=== PATIENT | female | born 1950 | race Caucasian/White ===

== ENCOUNTER 2019-06-23 10:06 | Observation (INO) | payer MEDICARE ==
--- NOTE | 2019-06-16 11:39 | HP ---
AMENDED REPORT NOW INCLUDES DESIGNATED COSIGNER HISTORY AND PHYSICAL: DATE OF ADMISSION/SURGERY: 06/23/19 DATE OF OFFICE VISIT: 06/15/19 SURGEON: Narda Pinedo MD.* (DICTATED BY FRANCISCO CURRY) PROCEDURE: Right total knee arthroplasty. CHIEF COMPLAINT: Right knee pain. HISTORY OF PRESENT ILLNESS: Ms. Walsh is a 69-year-old female with end- stage osteoarthritis of the right knee. She has failed conservative treatment and elected to proceed with a right total knee arthroplasty. PAST MEDICAL HISTORY: High cholesterol, diverticulitis, GERD, and basal cell carcinoma. PAST SURGICAL HISTORY: Hysterectomy, cystocele and rectocele repair, left rotator cuff repair, tubal ligation, and right knee arthroscopy. CURRENT MEDICATIONS: 1. Atorvastatin calcium 40 mg a day. 2. Bentyl 40 mg as needed. 3. Omeprazole 40 mg a day. 4. Norepinephrine 25 mg a day. 5. AZO Bladder Control. 6. Tylenol as needed. ALLERGIES: To MORPHINE causing hives and some mild shortness of breath. FAMILY HISTORY: Cancer. SOCIAL HISTORY: She is a 69-year-old female. She lives alone, but will be staying with her daughter after this surgery. She denies the use of tobacco or drugs and uses occasional alcohol. REVIEW OF SYSTEMS: A complete 14-point review of systems was reviewed with the patient, it was positive for GERD and some severe nausea, vomiting, and confusion after anesthesia. She denies history of DVT, PE, hepatitis, HIV or anesthesia problems. PHYSICAL EXAMINATION GENERAL: She is well developed, well nourished, in no acute distress. VITAL SIGNS: She stands 53-1/2 inches tall, weighs 174 pounds. Blood pressure is 148/88, heart rate is 60. HEENT: Normocephalic, atraumatic. NECK: Supple. No palpable lymph nodes. CARDIO: Regular rate and rhythm. Strong S1, S2. PULMONARY: Lungs are clear to auscultation bilaterally. ABDOMEN: Soft, nontender, nondistended. NEUROLOGIC: She is alert and oriented x3. MUSCULOSKELETAL: Right lower extremity: The skin is intact. There are no open wounds or abrasions. There is a moderate effusion of the right knee joint. She has some tenderness along the medial and lateral joint line of the right knee. Range of motion is 10 to 120 degrees of flexion with patellofemoral crepitus. She has a 2+ dorsalis pedis pulse. She is able to dorsiflex and plantarflex and has intact sensation. ASSESSMENT AND PLAN: Ms. Walsh is a 69-year-old female with end-stage osteoarthritis of the right knee. She has failed conservative treatment and elected to proceed with a right total knee arthroplasty. The surgery is scheduled for 06/23/[address] Pinedo discussed the risks and benefits of the surgery at today's visit and all of her questions were answered. She will follow up with Dr. Pinedo 2 weeks after the surgery. FRANCISCO CURRY [id number]/CPS #: [id number] MTDD
[~2019-06-23 10:06] MED LIST: Buffered Lidocaine 1% SYRIN* 1 ML/SYRINGE INTRADERM ONE; HYDROmorphone INJ1* 1 MG/ML SYRINGE IV PRN; Lactated Ringers 1000 ML Bag* 1,000 ML IV SCH; Naloxone* 0.4 MG/ML 1 ML VIAL IV PRN; Ondansetron INJ* 2 MG/ML VIAL IV PRN; Tranexamic Acid 1,000 MG in NS 0.9% 50 ML* (outpatient use) IV SCH; ceFAZolin 2 GM PREMIX in ORs 2 GM/50 ML BAG ONE
--- OUTSIDE RECORDS SUMMARY | 2019-06-23 10:10 | XMS REPORT | Continuity of Care Document ---
:1950 External Reference #:[id number] Author Name Narda Pinedo M.D. (transmitted by agent of provider Mellisa Gallego) Address [address] [place] [address] [place] [address] Care Team Providers Name Role Phone Patient's Choice Care Team Information Teaching Specialists Unavailable Problems Active Problems Provider Date Localized, primary osteoarthritis Narda Pinedo M.D. Onset: 05/25/2019 Social History Type Date Description Comments Sex Unknown ETOH Use Occasionally consumes alcohol Tobacco Use Start: Unknown Patient has never smoked Smoking Status Reviewed: 06/15/19 Patient has never smoked Exercise Type/Frequency Exercises regularly Allergies, Adverse Reactions, Alerts Active Allergies Reaction Severity Comments Date Morphine Sulfate Hives 05/25/2019 Medications Active Medications SIG Qnty Indications Ordering Provider Date Atorvastatin Calcium 1 by mouth every Unknown 40mg day Tablets Omeprazole 2 by mouth every Unknown 40mg Capsules DR day Norepinephrine 25 mg Qday Unknown Bitartrate Azo Bladder 1 tab Qday Unknown Control/Go-Less Capsules Tylenol 8 Hour 1 tab by mouth Unknown 650mg Tablets twice daily ER Bentyl 40 MG 1 tab by mouth Unknown once daily as needed Immunizations Description No Information Available Vital Signs Date Vital Result Comment 06/15/2019 8:59am Height 63.5 inches 5'3.50" Weight 174.50 lb Heart Rate 60 /min BP Systolic Sitting 148 mmHg BP Diastolic Sitting 88 mmHg Respiratory Rate 16 /min Pain Level 0 O2 % BldC Oximetry 98 % BMI (Body Mass Index) 30.4 kg/m2 05/25/2019 9:30am Height 63.5 inches 5'3.50" Weight 174.50 lb Heart Rate 63 /min BP Systolic 146 mmHg BP Diastolic 76 mmHg Respiratory Rate 16 /min Pain Level 10 BMI (Body Mass Index) 30.4 kg/m2 Results Description No Information Available Procedures Description No Information Available Medical Devices Description No Information Available Encounters Type Date Location Provider Dx Diagnosis Office Visit 05/25/2019 [facility] Narda Pinedo, M25.561 Pain in right 9:15a at [place] knee M25.461 Effusion, right knee M17.11 Unilateral primary osteoarthritis, right knee M25.562 Pain in left knee M25.462 Effusion, left knee M17.12 Unilateral primary osteoarthritis, left knee Assessments Date Code Description Provider 06/15/2019 M25.561 Pain in right knee Narda Pinedo M.D. 06/15/2019 M25.461 Effusion, right knee Narda Pinedo M.D. 06/15/2019 M17.11 Unilateral primary osteoarthritis, right knee Narda Pinedo M.D. 05/25/2019 M25.561 Pain in right knee Narda Pinedo M.D. 05/25/2019 M25.461 Effusion, right knee Narda Pinedo M.D. 05/25/2019 M17.11 Unilateral primary osteoarthritis, right knee Narda Pinedo M.D. 05/25/2019 M25.562 Pain in left knee Narda Pinedo M.D. 05/25/2019 M25.462 Effusion, left knee Narda Pinedo M.D. 05/25/2019 M17.12 Unilateral primary osteoarthritis, left knee Narda Pinedo M.D. Plan of Treatment Future Appointment(s):07/06/2019 9:15 am - Narda Pinedo M.D. at [facility]06/23/2019 2:30 pm - Narda Pinedo M.D. at [facility]06/15/2019 - Narda Pinedo M.D.M25.561 Pain in right kneeFollow up:Follow up: 2 weeks after [id number] Effusion, right kneeM17.11 Unilateral primary osteoarthritis, right knee Functional Status Description No Information Available Mental Status Description No Information Available Referrals Description No Information Available
--- OUTSIDE RECORDS SUMMARY | 2019-06-23 10:10 | XMS REPORT | Continuity of Care Document ---
:1950 External Reference #:[id number] Author Name Narda Pinedo M.D. (transmitted by agent of provider Monique Sheppard) Address [address] [place] [address] [place] [address] Care Team Providers Name Role Phone Patient's Choice Care Team Information Women'S Activities Adviser Unavailable Problems Active Problems Provider Date Localized, primary osteoarthritis Narda Pinedo M.D. Onset: 05/25/2019 Social History Type Date Description Comments Sex Unknown ETOH Use Occasionally consumes alcohol Tobacco Use Start: Unknown Patient has never smoked Smoking Status Reviewed: 05/25/19 Patient has never smoked Exercise Type/Frequency Exercises [...] Qday Unknown Control/Go-Less Capsules Tylenol 8 Hour take every 6 Unknown 650mg hours as needed Tablets ER for pain, headache or fever Immunizations Description No Information Available Vital Signs Date Vital Result Comment 05/25/2019 9:30am Height 63.5 inches 5'3.50" Weight 174.50 lb Heart Rate 63 /min BP Systolic 146 mmHg BP Diastolic 76 mmHg Respiratory Rate 16 /min Pain Level 10 BMI (Body Mass Index) 30.4 kg/m2 Results Description No Information Available Procedures Description No Information Available Medical Devices Description No Information Available Encounters Description No Information Available Assessments Date Code Description Provider 05/25/2019 M25.561 Pain in right knee Narda Pinedo M.D. 05/25/2019 M25.461 Effusion, right knee Narda Pinedo M.D. 05/25/2019 M17.11 Unilateral primary osteoarthritis, right knee Narda Pinedo M.D. 05/25/2019 M25.562 Pain in left knee Narda Pinedo M.D. 05/25/2019 M25.462 Effusion, left knee Narda Pinedo M.D. 05/25/2019 M17.12 Unilateral primary osteoarthritis, left knee Narda Pinedo M.D. Plan of Treatment 05/25/2019 - Narda Pinedo M.D.M25.561 Pain in right kneeNew Xrays:Knees Bilateral, Ordered: 05/25/19Follow up:Follow up: 7-10 days before [id number] Effusion, right kneeM17.11 Unilateral primary osteoarthritis, right kneeM25.562 Pain in left kneeNew Xrays:Knees Bilateral, Ordered: M25.462 Effusion, left kneeM17.12 Unilateral primary osteoarthritis, left knee Functional Status Description No Information Available Mental Status Description No Information Available Referrals Description No Information Available
[2019-06-23] MEDS ORDERED: ROPIVACAINE 5 MG/ML 30 ML BTL (0.5%) ONE ×2 (12:22→12:42)
[2019-06-23] MEDS ORDERED: Midazolam* 1 MG/ML 5 ML VIAL (5 MG) ONE (12:22)
[2019-06-23] MEDS ORDERED: Propofol* 10 MG/ML 20 ML BTL ONE (12:47)
[2019-06-23] MEDS ORDERED: Ondansetron INJ* 2 MG/ML VIAL ONE (14:44)
[2019-06-23] MEDS ORDERED: Dexamethasone IV* 4 MG/ML 1 ML (4 MG) ONE (14:44)
[2019-06-23] MEDS ORDERED: Ondansetron INJ* 2 MG/ML VIAL IV PRN (15:25)
[2019-06-23] MEDS ORDERED: Polyethylene Glycol 3350* 17 GM PACKET PO PRN (15:25)
[2019-06-23] MEDS ORDERED: Ondansetron ODT TAB* 4 MG PO PRN (15:25)
[2019-06-23] MEDS ORDERED: diPHENhydraMINE IV* 50 MG/ML 1 ml VIAL (BENADRYL) IV PRN (15:25)
[2019-06-23] MEDS ORDERED: diPHENhydraMINE PO* 25 MG PO PRN (15:25)
[2019-06-23] MEDS ORDERED: Cyclobenzaprine TAB* 10 MG PO PRN (15:25)
[2019-06-23] MEDS ORDERED: traMADol TAB* 50 MG PO PRN (15:25)
[2019-06-23] MEDS ORDERED: Magnesium Hydroxide LIQ* 30 ML UDC PO PRN (15:25)
[2019-06-23] MEDS ORDERED: HYDROmorphone INJ* 0.5 MG/0.5 ML SYRINGE IV SLOW PU PRN (15:28)
[2019-06-23] MEDS ORDERED: Dicyclomine CAP* 10 MG PO PRN (15:28)
[2019-06-23] MEDS: Lactated Ringers 1000 ML Bag* 1,000 ML IV SCH (17:05)
--- NOTE | 2019-06-23 20:17 | OP ---
Operative Report - Blank - Operative Report Date of Operation: 06/23/19 Note: MISAEL YANG 1950 Date of Surgery: 06/23/19 Narda Pinedo MD Timber Killer: Genna SINGH did help throughout the procedure with preparation of the knee, wound retraction, manipulation of the knee, and wound closure. Anesthesiologist: Dr Min Anesthesia Type: Spinal Preoperative Diagnosis: Right severe degenerative osteoarthritis of the knee Postoperative Diagnosis: As above Procedure Performed: Right Total Knee Arthroplasty Tourniquet time: 45 minutes Complications: None Specimen: Bone and cartilage from the Right knee joint sent to pathology. Hardware Used: Cemented [employer]ce [employer]hew total knee hardware was used - For the femur a size 5 right narrow legion posterior stabilized femoral component, for the tibia a size 3 right caio II tibial baseplate, for the insert a size 9mm 3-4 posterior stabilized articular polyethylene insert, and for the patella a size 29 3-peg all poly patella. Brief History/Indication: MISAEL YANG was known in clinic and had a history of severe right knee pain and swelling. She failed conservative treatment with anti-inflammatories, pain pills, intra-articular injections and physical therapy. She elected to undergo right total knee arthroplasty due to continued pain and decreased quality of life. Radiographs showed severe end stage osteoarthritis of the knee with bone on bone contact. Informed consent was obtained from the patient. She understood the risks of surgery included but were not limited to: bleeding, infection, damage to nearby structures, intraoperative fracture, nerve palsy, failure of the hardware, early loosening, knee stiffness or loss of motion, anesthesia complications, stroke, heart attack , blood clot and . She wished to proceed. Intra-Operative Findings: Intraoperatively the patient was noted to have severe loss of cartilage in all 3 compartments of the knee. Description of the Procedure: MISAEL YANG was identified in the preanesthesia unit. Her right knee was marked as the correct operative side. Informed consent was signed and placed in the chart. The patient was taken to the operating room and placed under anesthesia without complication. A li catheter was placed. A tourniquet was placed on the right thigh. The right lower extremity was prepped and draped in the usual sterile fashion. Preoperative time-out was made to correctly identify the patient, side and site. Appropriate intraoperative antibiotics were given within one hour of incision. Tourniquet was inflated. A midline incision was made and carried sharply down to the extensor mechanism. A new 10 blade was used to make a standard medial parapatellar arthrotomy. The patella was subluxed laterally. Electrocautery was used to dissect soft tissue off the superomedial tibia to the midsagittal plane. The knee was flexed up. The anterior horn of the lateral meniscus and the ACL were sharply incised. A drill was used to enter the distal femur. The intramedullary distal femoral cutting guide was pinned on the distal femur. The oscillating saw was used to make the distal femoral cut. The external rotation guide was pinned on the distal femur and the distal femur was sized to a size 5. The size 5 multi-cutting jig was pinned on the distal femur. The oscillating saw was used to make the appropriate 4 chamfer cuts. Next the PCL was completely released. The extramedullary tibial cutting guide was pinned on the proximal tibia and the oscillating saw was used to make the proximal tibial cut perpendicular to the mechanical axis of the tibia. The bone was carefully removed. The knee was brought out into full extension. The spacer block was placed and had excellent fit with the knee in full extension. The medial and lateral ligaments were well balanced. The flexion and extension gaps were well balanced. The knee was flexed up. Lamina hand box coverer was placed both medially and laterally. Any remaining meniscus was removed with electrocautery. Curved osteotome was used to remove any posterior osteophytes. The tibial tray and drop dee were placed and confirmed a satisfactory tibial cut. The size 5 right narrow femoral trial was impacted onto the distal femur. This trial had excellent fit and stability. The box for the posterior stabilized implant was prepared using a box cut osteotome and a reamer. Next a tibial tray trial and 9 mm insert trial was placed. The knee was taken through a range of motion and had full extension to 130 degrees of flexion. Patellofemoral tracking was satisfactory. The patella was inverted and sized to a size 29. Three peg holes were drilled through the size 29 drill guide. The trial patella was placed and the knee was taken through a range of motion. There was satisfactory patellofemoral tracking. All trials were removed. The tibia was subluxed anteriorly and sized to a size 3. The proximal tibial was prepared with a size 3 keel punch. All bony cut surfaces were irrigated with sterile saline and dried. Final implants were cemented into place starting with the tibia, followed by the femur, and last the patella. A 9 mm insert trial was placed and the knee was brought into full extension. Tourniquet was turned down and the knee was copiously irrigated with sterile saline. Electrocautery was used to obtain meticulous hemostasis. Once the cement had fully cured, the insert trial was removed. Any excess cement was removed from around the hardware and capsule. Final insert chosen was a 9 mm posterior stabilized Caio II articular insert size 3-4. Stability of the insert was checked and noted to be stable. The extensor mechanism was closed using number 1 vicryls. The rest of the incision was closed in a layered fashion using 0 and 2-0 vicryls. The skin was closed using 3-0 nylon suture. Sterile xeroform, 4x4s and webril were used to cover the incision. Manuel wrap and cold pack were used to cover the dressings. The patients anesthesia was reversed without difficulty. She was taken to the PACU in stable condition. Intended weight-bearing will be as tolerated.
[2019-06-23] MEDS: oxyCODONE/Acetamin 5/325 MG* TAB PO PRN (20:18)
[2019-06-23] MEDS: Atorvastatin* 40 MG TAB PO SCH (20:19)
[2019-06-23] MEDS: Nortriptyline CAP* 25 MG PO SCH (20:19)
[2019-06-23] MEDS: Magnesium Hydroxide LIQ* 30 ML UDC PO SCH (20:20)
[2019-06-23] MEDS: Docusate CAP* 100 MG PO SCH (20:20)
[2019-06-23] MEDS: ceFAZolin 1 GM ADVAN(*) 1 GM in NS 0.9% 50 ML* 50 ML IVPB SCH (20:21)
[2019-06-23] MEDS: Acetaminophen TAB* 325 MG PO SCH (21:27)
[2019-06-23] MEDS: oxyCODONE TAB* 5 MG TAB PO PRN (22:15)
[2019-06-24] MEDS: oxyCODONE/Acetamin 5/325 MG* TAB PO PRN ×6 (00:15→23:40)
[2019-06-24] MEDS: oxyCODONE TAB* 5 MG TAB PO PRN ×2 (02:17→06:15)
[2019-06-24] MEDS: Lactated Ringers 1000 ML Bag* 1,000 ML IV SCH (02:41)
[2019-06-24] MEDS: ceFAZolin 1 GM ADVAN(*) 1 GM in NS 0.9% 50 ML* 50 ML IVPB SCH ×2 (05:16→12:34)
[2019-06-24] MEDS: Acetaminophen TAB* 325 MG PO SCH ×3 (05:18→22:16)
[2019-06-24 05:59] LABS: Hematocrit 39 % (35-47); Hemoglobin 12.9 g/dL (12.0-16.0); Mean Platelet Volume 9.2 fL (7.4-10.4); Platelet Count 284 10^3/uL (150-450)
[2019-06-24 06:16] LABS: BUN/Creatinine Ratio 21.3 (8-20); Calcium 8.6 mg/dL (8.6-10.3); EGFR African American 117.3 (>60); Potassium 4.6 mmol/L (3.5-5.0)
[2019-06-24] MEDS: Magnesium Hydroxide LIQ* 30 ML UDC PO SCH ×2 (08:22→21:21)
[2019-06-24] MEDS: Vitamin THERAPEUTIC TAB PO SCH (08:22)
[2019-06-24] MEDS: Apixaban* 2.5 MG TAB PO SCH ×2 (08:22→21:20)
[2019-06-24] MEDS: Docusate CAP* 100 MG PO SCH ×2 (08:23→21:20)
[2019-06-24] MEDS ORDERED: Scopolamine 1.5 mg* PATCH TRANSDERM SCH (10:00)
--- NOTE | 2019-06-24 10:43 | PN ---
Progress Note - Progress Note Date of Service: 06/24/19 SOAP: Subjective: []Pt seen at bedside. She feels well without CP, SOB, dizziness, abd pain. Does have nausea. R knee pain well controlled. Objective: []Gen: NAD, appears well RLE: Right knee dressing CDI, thigh soft, DF/PF intact, DP2+, sensation intact to light touch distally Calves supple and nontender without erythema, edema or palpable cords Assessment: []POD [address] Pinedo Plan: []WBAT PT/OT eliquis 2.5 mg po bid x 30 days post op Scop patch ordered for nausea Home dose omeprazole 40 mg qd ordered Home today or tomorrow, will change dressing today if DC Vital Signs Temp 98.4 F 06/24/19 07:49 Pulse 60 06/24/19 07:49 Resp 16 06/24/19 08:23 BP 148/47 06/24/19 07:49 Pulse Ox 100 06/24/19 07:49 Intake & Output 06/23/19 06/24/19 06/24/19 18:59 06:59 18:59 Intake Total 1850 2336 180 Output Total 525 1500 250 Balance 1325 836 -70 Weight 173 lb 11.588 oz Intake: IV Fluids 1850 932 LR 1850 932 IVPB 54 ABX - CEFAZOLIN 54 Oral 1350 180 Output: Urine 750 250 Emmanuel 325 750 Estimated Blood Loss 200 Laboratory Last Values Hgb 12.9 g/dL (12.0-16.0) 06/24/19 05:07 Hct 39 % (35-47) 06/24/19 05:07 Plt Count 284 10^3/uL (150-450) 06/24/19 05:07 MPV 9.2 fL (7.4-10.4) 06/24/19 05:07 Sodium 136 mmol/L (135-145) 06/24/19 05:07 Potassium 4.6 mmol/L (3.5-5.0) 06/24/19 05:07 Chloride 103 mmol/L (101-111) 06/24/19 05:07 Carbon Dioxide 27 mmol/L (22-32) 06/24/19 05:07 Anion Gap 6 mmol/L (2-11) 06/24/19 05:07 BUN 13 mg/dL (6-24) 06/24/19 05:07 Creatinine 0.61 mg/dL (0.51-0.95) 06/24/19 05:07 Est GFR ( Amer) 117.3 (>60) 06/24/19 05:07 Est GFR (Non-Af Amer) 97.0 (>60) 06/24/19 05:07 BUN/Creatinine Ratio 21.3 (8-20) H 06/24/19 05:07 Glucose 132 mg/dL (70-100) H 06/24/19 05:07 Calcium 8.6 mg/dL (8.6-10.3) 06/24/19 05:07
[2019-06-24] MEDS: Pantoprazole TAB * 40 MG TAB PO SCH (10:58)
[2019-06-24] MEDS: PROCHLORPERAZINE INJ 5 MG/ML 2 ML VIAL IV PRN (14:00)
--- NOTE | 2019-06-24 14:25 | DS ---
Orthopedic Discharge Summary - Discharge Summary Date of Admission:06/23/19 Date of Discharge: 06/24/19 Date of Surgery: 06/23/19 Attending Orthopedic Provider: Dr Pinedo Pre-operative Diagnosis: right knee osteoarthrits Operative Procedure: right total knee replacement Disposition of Patient: home with lifetime nursing and home pt Condition of Patient: stable History: MISAEL YANG is a 69 year old F with years of increasingly severe right knee pain. Patient has failed conservative management and has elected to undergo a right total knee replacement Hospital Course: MISAEL was admitted to [facility] on 06/23/19. Patient underwent a right total knee replacement without complication followed by a brief recovery in PACU and transfer to the Short Stay Surgical Unit in stable condition. physical therapy also participated in this patients care. Post -op day 1: patient was alert and in no acute distress. Dressing was clean, dry and intact. Operative extremity dorsiflexion and plantarflexion intact, sensation intact to light touch distally, DP2+. Post-op day two: dressing was changed, incision was clean, dry and intact. Patient was deemed to be medically and orthopedically stable for discharge. Physical therapy goals were met. Home Medications Medication Instructions Recorded Confirmed Type Acetaminophen TAB* [Tylenol TAB*] 650 mg PO BID 06/22/19 06/23/19 History Atorvastatin* [Lipitor 40 MG*] 40 mg PO BEDTIME 06/22/19 06/23/19 History Dicyclomine CAP* [Bentyl CAP*] 40 mg PO AC PRN 06/22/19 06/23/19 History Nortriptyline CAP* [Pamelor CAP*] 25 mg PO BEDTIME 06/22/19 06/23/19 History Omeprazole 40 mg PO QAM 06/22/19 06/23/19 History Polyethylene Glycol 3350* 17 gm PO QAM 06/22/19 06/23/19 History [Miralax*] Calcium Carbonate [Tums] 200 mg PO DAILY PRN 06/23/19 06/23/19 History Acetaminophen TAB* [Tylenol TAB*] 975 mg PO Q8HR tab 06/24/19 Rx Docusate CAP* [Colace Cap*] 100 mg PO BID PRN #60 cap 06/24/19 Rx Enoxaparin(*) [Lovenox(*)] 40 mg SUBCUT Q24HR #30 syringe 06/24/19 Rx Scopolamine 1.5 mg* PATCH* 1 patch TRANSDERM Q72H patch 06/24/19 Rx [Transderm-Scop 1.5 mg Patch*] oxyCODONE/Acetamin 5/325 MG* 2 tab PO Q4H PRN #60 tab MDD 10 06/24/19 Rx [Percocet 5/325 TAB*] Discharge Instructions following Orthopedic Surgery: Activity: * Weight Bearing as tolerated * Continue physical therapy and occupational therapy exercises as shown * Home PT Wound care: * OK to shower on post-op day 3, no bathing, swimming, or submerging wound. * Use gentle soap, pat dry. Cover with gauze, MICHELLE wrap or tape. * Visiting home nurse to do wound checks. Call Orthopedic office for: * Increased drainage * Redness * Increased pain * Fever Go to ER with shortness of breath or chest pain. Diet: * Regular diet * Increase fluids and fiber to prevent constipation. * Continue to use stool softeners, call office if no bowel motion within 48 hours. Medications See Home Medication List in your packet for medications that you should take after discharge. compazine 5 mg tabs 1 tab every 6 hours as needed for nausea Remove scopolamine patch from behind your ear 06/27/19 DVT Prophylaxis: Lovenox 40 mg subcutaneous injection once daily for 30 days postop. Increases bleeding tendency Pain Control: Percocet Dosin/325 mg 1-2 tabs by mouth every 4-6 hours as needed for pain. Maximum of 10 tabs per day. HOld for sedation, wean off as soon as pain allows Please note that Percocet contains Tylenol (acetaminophen). Maximum daily dose of Tylenol is 4000 mg from all sources. Antibiotics are required prior to any dental work. FOLLOW UP: Follow up with [Khris] Within 10-14 days, call for appointment Please call our office with any questions or concerns ([phone]) RX [facility] pain meds, docusate and compazine Winter Carey lovenox
[2019-06-24] MEDS: Atorvastatin* 40 MG TAB PO SCH (21:20)
[2019-06-24] MEDS: Nortriptyline CAP* 25 MG PO SCH (21:20)
[2019-06-25] MEDS: oxyCODONE TAB* 5 MG TAB PO PRN ×2 (02:02→11:56)
[2019-06-25 05:45] LABS: Hematocrit 38 % (35-47); Hemoglobin 12.9 g/dL (12.0-16.0); Mean Platelet Volume 9.2 fL (7.4-10.4); Platelet Count 281 10^3/uL (150-450)
[2019-06-25] MEDS: Acetaminophen TAB* 325 MG PO SCH (06:16)
[2019-06-25] MEDS: PROCHLORPERAZINE INJ 5 MG/ML 2 ML VIAL IV PRN (07:24)
[2019-06-25] MEDS: Apixaban* 2.5 MG TAB PO SCH (08:13)
[2019-06-25] MEDS: Docusate CAP* 100 MG PO SCH (08:13)
[2019-06-25] MEDS: Pantoprazole TAB * 40 MG TAB PO SCH (08:13)
[2019-06-25] MEDS: oxyCODONE/Acetamin 5/325 MG* TAB PO PRN (08:13)
[2019-06-25] MEDS: Vitamin THERAPEUTIC TAB PO SCH (08:13)
[2019-06-25] MEDS: Magnesium Hydroxide LIQ* 30 ML UDC PO SCH (08:15)
[2019-06-25 11:19] LABS: Urine Appearance Cloudy; Urine Bilirubin Negative (Negative); Urine Blood 1+ (Negative); Urine Color Yellow; Urine Glucose Negative (Negative); Urine Ketones Negative (Negative); Urine Nitrite Negative (Negative); Urine Protein Negative (Negative); Urine Specific Gravity 1.011 (1.010-1.030); Urine Urobilinogen Negative (Negative)
[2019-06-25 11:20] LABS: Urine Bacteria Absent (Absent); Urine Red Blood Cell 1+(3-5/hpf) (Absent); Urine Squamous Epithelial Cell Present (Absent); Urine White Blood Cell 2+(11-20/hpf) (Absent)
[2019-06-25 11:24] VITALS: BP 139/55
--- NOTE | 2019-06-25 13:11 | PN ---
Progress Note - Progress Note Date of Service: 06/25/19 Note: Laboratory Last Values Hgb 12.9 g/dL (12.0-16.0) 06/25/19 05:21 Hct 38 % (35-47) 06/25/19 05:21 Plt Count 281 10^3/uL (150-450) 06/25/19 05:21 MPV 9.2 fL (7.4-10.4) 06/25/19 05:21 Sodium 136 mmol/L (135-145) 06/24/19 05:07 Potassium 4.6 mmol/L (3.5-5.0) 06/24/19 05:07 Chloride 103 mmol/L (101-111) 06/24/19 05:07 Carbon Dioxide 27 mmol/L (22-32) 06/24/19 05:07 Anion Gap 6 mmol/L (2-11) 06/24/19 05:07 BUN 13 mg/dL (6-24) 06/24/19 05:07 Creatinine 0.61 mg/dL (0.51-0.95) 06/24/19 05:07 Est GFR ( Amer) 117.3 (>60) 06/24/19 05:07 Est GFR (Non-Af Amer) 97.0 (>60) 06/24/19 05:07 BUN/Creatinine Ratio 21.3 (8-20) H 06/24/19 05:07 Glucose 132 mg/dL (70-100) H 06/24/19 05:07 Calcium 8.6 mg/dL (8.6-10.3) 06/24/19 05:07 Urine Color Yellow 06/25/19 10:40 Urine Appearance Cloudy 06/25/19 10:40 Urine pH 7.0 (5-9) 06/25/19 10:40 Ur Specific [place] 1.011 (1.010-1.030) 06/25/19 10:40 Urine Protein Negative (Negative) 06/25/19 10:40 Urine Ketones Negative (Negative) 06/25/19 10:40 Urine Blood 1+ (Negative) A 06/25/19 10:40 Urine Nitrate Negative (Negative) 06/25/19 10:40 Urine Bilirubin Negative (Negative) 06/25/19 10:40 Urine Urobilinogen Negative (Negative) 06/25/19 10:40 Ur Leukocyte Esterase Trace (Negative) A 06/25/19 10:40 Urine WBC (Auto) 2+(11-20/hpf) (Absent) A 06/25/19 10:40 Urine RBC (Auto) 1+(3-5/hpf) (Absent) A 06/25/19 10:40 Ur Squamous Epith Cells Present (Absent) A 06/25/19 10:40 Urine Bacteria Absent (Absent) 06/25/19 10:40 Urine Glucose Negative (Negative) 06/25/19 10:40 Possible UTI with leuk esterase + WBC, + dysuria. Called patient, treated with cipro 250 mg bid x 3 days
== END 2019-06-25 12:05 | disposition home or self-care (01) ==
LOC: AA 10:06 → INTOOBSV 10:06 → SSU 16:59
PROVIDERS: ADMIT Orthopaedic Surgery Adult Reconstructive Orthopaedic Surgery; ATTEND Orthopaedic Surgery Adult Reconstructive Orthopaedic Surgery
DX: M17.11 Unilateral primary osteoarthritis, right knee (principal); E78.00 Pure hypercholesterolemia, unspecified; K57.92 Diverticulitis of intestine, part unspecified, without perforation or abscess without bleeding; K21.9 Gastro-esophageal reflux disease without esophagitis; Z85.828 Personal history of other malignant neoplasm of skin; Z79.899 Other long term (current) drug therapy
CPT/HCPCS: 36415; 80048; 81003; 81015; 85014; 85018; 85049; 87086; 88305; 88311; 96374; 96375; 96376; A9270-GY; C1776; G0378; J0690; J0780; J1100; J2250; J2405; J2704; J2795

== ENCOUNTER 2022-02-27 05:36 | Observation (INO) ==
[2022-02-27] MEDS ORDERED: Dexamethasone IV 4 MG/ML VIAL 1 ml VIAL IV SLOW PU ONE (06:00)
[2022-02-27] MEDS ORDERED: Famotidine IV 10 MG/ML 2 ml VIAL (20 mg) IV ONE (06:00)
[2022-02-27] MEDS ORDERED: Lactated Ringers 1000 ml BAG 1,000 ML IV SCH ×2 (06:00→11:00)
[2022-02-27] MEDS ORDERED: Scopolamine 1 mg/72hr PATCH TRANSDERM ONE (06:00)
[2022-02-27] MEDS ORDERED: Buffered Lidocaine 1% SYRIN 1 ml INTRADERM ONE ×2 (06:00→06:09)
[2022-02-27] MEDS ORDERED: Scopolamine 1 mg/72hr PATCH ONE (06:08)
[2022-02-27] MEDS ORDERED: Dexamethasone IV 4 MG/ML VIAL 1 ml VIAL ONE (06:08)
[2022-02-27] MEDS ORDERED: ceFAZolin 2 GM in NS PREMIX 2 GM/100 ML BAG IVPB ONE (06:09)
[2022-02-27] MEDS ORDERED: Famotidine IV 10 MG/ML 2 ml VIAL (20 mg) ONE (06:09)
[2022-02-27] MEDS ORDERED: Ropivacaine 5 MG/ML 20 ML VIAL 0.5% (100 MG) ONE (06:31)
[2022-02-27] MEDS ORDERED: fentaNYL 100 mcg/2 ml 50 MCG/ML VIAL ONE ×2 (06:51→07:40)
[2022-02-27] MEDS ORDERED: Midazolam 2 mg/2 ml VIAL 1 mg/ml 2 ml VIAL (2 mg) ONE ×2 (06:51→07:40)
[2022-02-27] MEDS ORDERED: ROPIVACAINE 5 MG/ML 30 ML BTL (0.5%) ONE (07:03)
[2022-02-27] MEDS ORDERED: Phenylephrine IV 10 MG/ML 1 ml VIAL ONE (08:03)
[2022-02-27] MEDS ORDERED: Prochlorperazine 5 mg/ml 2 ml VIAL (10 mg) IV PRN (08:14)
[2022-02-27] MEDS ORDERED: HYDROmorphone 1 MG/1 ML SYRINGE IV PRN (08:14)
[2022-02-27] MEDS ORDERED: Naloxone 0.4 mg VIAL 0.4 mg/ml 1 ml VIAL IV PRN (08:14)
[2022-02-27] MEDS ORDERED: fentaNYL 100 mcg/2 ml 50 MCG/ML VIAL IV PRN (08:14)
[2022-02-27] MEDS ORDERED: Phenylephrine 40 mcg/mL 10mL (400mcg) SYRINGE ONE (08:21)
[2022-02-27] MEDS ORDERED: Ondansetron 4 mg VIAL 2 MG/ML 2 ml VIAL ONE (09:27)
[2022-02-27] MEDS ORDERED: Lactulose 30 ml UDC PO PRN (10:15)
[2022-02-27] MEDS ORDERED: Ondansetron ODT 4 mg TAB 4 MG TAB PO PRN (10:15)
[2022-02-27] MEDS ORDERED: Magnesium Hydroxide LIQ 30 ML UDC PO PRN (10:15)
[2022-02-27] MEDS ORDERED: Ondansetron 4 mg VIAL 2 MG/ML 2 ml VIAL IV PRN (10:15)
[2022-02-27 13:44] VITALS: BP 104/65
[2022-02-27] MEDS ORDERED: ceFAZolin 1 GM in Dextrose 1 GM/50 ML BAG IV SCH (16:00)
[2022-02-27] MEDS ORDERED: Magnesium Hydroxide LIQ 30 ML UDC PO SCH (21:00)
[2022-02-28] MEDS ORDERED: Vitamin THERAPEUTIC TAB PO SCH (09:00)
== END 2022-02-27 17:10 | disposition home or self-care (01) ==
LOC: INTOOBSV 05:36 → AA 05:36 → SSU 10:15
PROVIDERS: ADMIT Orthopaedic Surgery Adult Reconstructive Orthopaedic Surgery; ATTEND Orthopaedic Surgery Adult Reconstructive Orthopaedic Surgery